=== PATIENT | male | born 1940 | race Caucasian/White ===

== ENCOUNTER 2022-03-03 19:05 | Emergency (ER) | payer OTHER ==
[~2022-03-03] VITALS: Ht 170.2 cm; Wt 102.1 kg
--- NOTE | 2022-03-03 19:55 | NUR ---
AMBER [id number] FROM HOME FOR GLF/ SLIPPED OFF BED. PT NO LONGER TO CARE FOR SELF. PT AWAKE AND ALERT BREATHING EVEN AND UNLABORED. SAFETY MEASURES IN PLACE V/S WNL.
--- NOTE | 2022-03-03 19:56 | NUR ---
PT TAKEN TO CT VIA [facility]
--- NOTE | 2022-03-03 20:11 | NUR ---
LAB AT BEDSIDE
[2022-03-03 20:50] LABS: BASOPHILS # (AUTO) 0.1 K/uL (0.0-0.2); BASOPHILS % (AUTO) 0.3 % (0.0-2.0); EOSINOPHILS % (AUTO) 0.1 % (0.0-6.0); HEMATOCRIT 45 % (39-51); HEMOGLOBIN 14.2 g/dL (13.5-17.5); LYMPHOCYTES # (AUTO) 0.9 K/uL (0.8-4.8); LYMPHOCYTES % (AUTO) 4.2 % (20.0-44.0); MEAN CORPUSCULAR HGB CONC 32 g/dl (31.0-36.0); MEAN CORPUSCULAR VOLUME 82 fL (80-96); MONOCYTES # (AUTO) 1.1 K/uL (0.1-1.30); MONOCYTES % (AUTO) 5.6 % (2.0-12.0); NEUTROPHILS # (AUTO) 18.1 K/uL (1.8-8.9); NEUTROPHILS % (AUTO) 89.8 % (43.0-81.0); PLATELET COUNT (AUTO) 251 K/uL (150-450); RED BLOOD CELL COUNT(AUTO) 5.46 MIL/uL (4.5-6.0); WHITE BLOOD COUNT (AUTO) 20.2 K/uL (4.3-11.0)
[2022-03-03 21:23] LABS: ALANINE AMINOTRANSFERASE 20 U/L (12-78); ALBUMIN 3.3 g/dL (3.4-5.0); ALKALINE PHOSPHATASE 120 U/L (46-116); ASPARTATE AMINOTRANSFERASE 14 U/L (15-37); BILIRUBIN,DIRECT 0.1 mg/dL (0.0-0.2); BILIRUBIN,TOTAL 0.5 mg/dL (0.2-1.0); CALCIUM, SERUM 9.2 mg/dL (8.5-10.1); CARBON DIOXIDE 27 mmol/L (21-32); CHLORIDE 101 mmol/L (98-107); CREATININE 1.6 mg/dL (0.6-1.3); GLUCOSE 318 mg/dL (74-106); POTASSIUM 3.1 mmol/L (3.5-5.1); SODIUM SERUM 139 mmol/L (136-145); TOTAL PROTEIN, SERUM 8.1 g/dL (6.4-8.2); UREA NITROGEN, BLOOD 19 mg/dL (7-18)
--- NOTE | 2022-03-03 22:06 | NUR ---
URINE SPECIMEN SENT TO LAB
[2022-03-03] MEDS ORDERED: CEFTRIAXONE 1GM BAG (ER ONLY) 50 ML IV ONE ×2 (22:16→22:30)
--- NOTE | 2022-03-03 22:47 | NUR ---
IV CANNULA G20 INSERTED ON LEFT FA. BLOOD DRAWN AND SENT TO LAB
[2022-03-03 22:57] LABS: BILIRUBIN,URINE NEGATIVE (NEGATIVE); COLOR,URINE YELLOW (YELLOW); LEUKOCYTE ESTERASE ,URINE MODERATE (NEGATIVE); NITRITE, URINE POSITIVE (NEGATIVE); PROTEIN,URINE 100 mg/dl (NEGATIVE); UGLUCOSE >=1000 mg/dL (NEGATIVE); UROBILINOGEN,URINE 0.2 EU/dL (0.2)
--- NOTE | 2022-03-03 23:30 | NUR ---
SPOKE WITH [facility] FOR CLINICALS. PT WILL BE TRANSFERRED AND WILL CALL BACK FOR PE[facility].
--- NOTE | 2022-03-04 05:21 | NUR ---
ADMITTING TO FOLLOW UP WITH [facility] TRANSFER INFO
--- NOTE | 2022-03-04 06:30 | NUR ---
INFORMED BY ADMITTING THE PT HAVE AUTH TO STAY
[2022-03-04 07:16] LABS: BACTERIA,URINE Many /HPF (None Seen); SQUAMOUS EPITHELIAL CELL,UR Few /HPF (None Seen); WBC,URINE 51-80 /HPF (0-3)
--- NOTE | 2022-03-04 07:40 | NUR ---
REPORT GIVEN TO ANNA DRUMMOND
--- NOTE | 2022-03-04 08:15 | NUR ---
at bedside, wants to take patient home, dr nice made aware.
[2022-03-04] MEDS ORDERED: CEPH500C2 PO (08:18)
--- NOTE | 2022-03-04 08:30 | NUR ---
Patient discharged to home in stable condition. Written and verbal after care instructions given. Patient and verbalizes understanding of instruction.IV removed. Catheter intact and site benign. Pressure and 4x4 applied to site. No bleeding noted.
[2022-03-04 08:32] VITALS: BP 150/84
== END 2022-03-04 08:32 | disposition home or self-care (01) ==
LOC: ER 19:11
DX: R26.2 Difficulty in walking, not elsewhere classified (principal); G31.9 Degenerative disease of nervous system, unspecified; R00.0 Tachycardia, unspecified; I10 Essential (primary) hypertension; Z20.822 Contact with and (suspected) exposure to COVID-19; Z91.81 History of falling
CPT/HCPCS: 99285; 70450; 71045; 87426; 93005; 84145; 85025; 80048; 87086; 83605 ×2; 80076; 81001; 36415 ×2; 84484; 87040 ×2; 87081; J0696; C9803

== ENCOUNTER 2024-08-04 12:46 | Inpatient (IN) | payer BC, OTHER ==
[~2024-08-04] VITALS: Ht 182.9 cm; Wt 76.7 kg
[~2024-08-04 12:46] MED LIST: CEPH500C2 PO
[2024-08-04] MEDS ORDERED: IOHEXOL-350 100 ML VIAL IV ONE (12:59)
[2024-08-04 13:01] LABS: BASOPHILS # (AUTO) 0.1 K/uL (0.0-0.2); BASOPHILS % (AUTO) 0.5 % (0.0-2.0); EOSINOPHILS # (AUTO) 0.1 K/uL (0.0-0.7); EOSINOPHILS % (AUTO) 0.8 % (0.0-6.0); HEMATOCRIT 44 % (39-51); HEMOGLOBIN 14.1 g/dL (13.5-17.5); LYMPHOCYTES # (AUTO) 1.6 K/uL (0.8-4.8); LYMPHOCYTES % (AUTO) 10.6 % (20.0-44.0); MEAN CORPUSCULAR HEMOGLOBIN 28 PG (26.0-33.0); MEAN CORPUSCULAR HGB CONC 32 g/dl (31.0-36.0); MEAN CORPUSCULAR VOLUME 85 fL (80-96); MONOCYTES % (AUTO) 6.3 % (2.0-12.0); NEUTROPHILS # (AUTO) 12.3 K/uL (1.8-8.9); NEUTROPHILS % (AUTO) 81.8 % (43.0-81.0); PLATELET COUNT (AUTO) 310 K/uL (150-450); RED BLOOD CELL COUNT(AUTO) 5.13 MIL/uL (4.5-6.0)
[2024-08-04 13:16] LABS: CALCIUM, SERUM 8.6 mg/dL (8.5-10.1); CARBON DIOXIDE 29 mmol/L (21-32); CHLORIDE 104 mmol/L (98-107); CREATININE 1.7 mg/dL (0.6-1.3); GLUCOSE 208 mg/dL (74-106); POTASSIUM 3.6 mmol/L (3.5-5.1); SODIUM SERUM 140 mmol/L (136-145); UREA NITROGEN, BLOOD 36 mg/dL (7-18)
[2024-08-04 13:26] LABS: ALANINE AMINOTRANSFERASE 28 U/L (12-78); ALBUMIN 3.1 g/dL (3.4-5.0); ALKALINE PHOSPHATASE 101 U/L (46-116); ASPARTATE AMINOTRANSFERASE 19 U/L (15-37); BILIRUBIN,DIRECT 0.1 mg/dL (0.0-0.2); BILIRUBIN,TOTAL 0.4 mg/dL (0.2-1.0); TOTAL PROTEIN, SERUM 7.4 g/dL (6.4-8.2)
[2024-08-04] MEDS ORDERED: ASPIRIN 325 MG TABLET ONE ×2 (13:48→14:06)
[2024-08-04] MEDS: ASPIRIN 325 MG TABLET PO ONE (14:10)
[2024-08-04 14:23] LABS: INR 1.05 (0.91-1.10); PARTIAL THROMBOPLASTIN TIME 26.7 SEC (24.3-34.3); PROTHROMBIN TIME 11.1 SECS (9.2-11.1)
[2024-08-04 16:01] VITALS: O2SAT 95
[2024-08-04] MEDS ORDERED: VALS1TAB4 PO (16:36)
[2024-08-04] MEDS ORDERED: GLIP10TA11 PO (16:36)
[2024-08-04] MEDS ORDERED: CARV3.122 PO (16:36)
[2024-08-04] MEDS: IV 1/2NS 1000 ML 1,000 ML IV PRN (20:43)
[2024-08-04 20:50] VITALS: BP 148/69; TEMP 97.9; O2SAT 98
[2024-08-04] MEDS: ATORVASTATIN 40 MG TABLET PO SCH (21:02)
[2024-08-05] MEDS: METOPROLOL SUCCINATE 25 MG TAB.SR.24H PO SCH (01:04)
[2024-08-05 01:14] VITALS: BP 148/85; TEMP 97.7; O2SAT 92
[2024-08-05 07:53] LABS: THYROID STIMULATING HORMONE 1.52 uIU/mL (0.358-3.74)
[2024-08-05 07:54] LABS: BASOPHILS # (AUTO) 0.1 K/uL (0.0-0.2); BASOPHILS % (AUTO) 0.5 % (0.0-2.0); EOSINOPHILS # (AUTO) 0.2 K/uL (0.0-0.7); EOSINOPHILS % (AUTO) 1.3 % (0.0-6.0); HEMATOCRIT 40 % (39-51); HEMOGLOBIN 13.3 g/dL (13.5-17.5); LYMPHOCYTES % (AUTO) 15.1 % (20.0-44.0); MEAN CORPUSCULAR HEMOGLOBIN 28 PG (26.0-33.0); MEAN CORPUSCULAR HGB CONC 33 g/dl (31.0-36.0); MEAN CORPUSCULAR VOLUME 84 fL (80-96); MONOCYTES % (AUTO) 7.2 % (2.0-12.0); NEUTROPHILS # (AUTO) 10.1 K/uL (1.8-8.9); NEUTROPHILS % (AUTO) 75.9 % (43.0-81.0); PLATELET COUNT (AUTO) 260 K/uL (150-450); RED BLOOD CELL COUNT(AUTO) 4.78 MIL/uL (4.5-6.0); RED CELL DISTRIBUTION WIDTH 13.9 % (11.5-15.0); WHITE BLOOD COUNT (AUTO) 13.3 K/uL (4.3-11.0)
[2024-08-05 08:00] VITALS: BP 172/83; TEMP 98.1; O2SAT 100
[2024-08-05] MEDS ORDERED: ATOR40TA PO (09:31)
[2024-08-05] MEDS ORDERED: ASPI-1420 PO (09:31)
[2024-08-05 09:35] LABS: CALCIUM, SERUM 8.3 mg/dL (8.5-10.1); CREATININE 1.6 mg/dL (0.6-1.3); POTASSIUM 3.3 mmol/L (3.5-5.1)
[2024-08-05] MEDS: HYDROCHLOROTHIAZIDE 25 MG TABLET PO SCH (09:39)
[2024-08-05] MEDS: CARVEDILOL 3.125 MG TABLET PO SCH (09:39)
[2024-08-05] MEDS: CLOPIDOGREL BISULFATE 75 MG TABLET PO SCH (09:39)
[2024-08-05] MEDS: ASPIRIN 81 MG TAB.CHEW PO SCH (09:40)
[2024-08-05] MEDS: VALSARTAN 80 MG TABLET PO SCH (09:40)
[2024-08-05] MEDS: glipiZIDE 10 MG TABLET PO SCH (10:10)
[2024-08-05 16:00] VITALS: BP 159/76; TEMP 98.1; O2SAT 97
[2024-08-05 20:00] VITALS: BP 148/52; TEMP 98.1; O2SAT 93
[2024-08-06] MEDS: ACETAMINOPHEN 325 MG TABLET PO PRN (02:07)
[2024-08-06 08:00] VITALS: BP 175/76; TEMP 98.6; O2SAT 95
[2024-08-06] MEDS ORDERED: CARV12.5 PO (09:06)
[2024-08-06 15:38] VITALS: BP 157/84; TEMP 97.9; O2SAT 94
[2024-08-06] MEDS: CARVEDILOL 12.5 MG TABLET PO SCH (17:30)
[2024-08-06 20:00] VITALS: BP 149/55; TEMP 97.9; O2SAT 97
== END 2024-08-06 20:00 | DRG 69 ==
LOC: ER 12:50 → TELE 18:04 → MED 08-05 09:05
PROVIDERS: ADMIT Internal Medicine; ATTEND Internal Medicine
DX: G45.9 Transient cerebral ischemic attack, unspecified (principal); E44.1 Mild protein-calorie malnutrition; N17.9 Acute kidney failure, unspecified; I10 Essential (primary) hypertension; E78.5 Hyperlipidemia, unspecified; N18.32 Chronic kidney disease, stage 3b; I12.9 Hypertensive chronic kidney disease with stage 1 through stage 4 chronic kidney disease, or unspecified chronic kidney disease; Z91.81 History of falling; E11.22 Type 2 diabetes mellitus with diabetic chronic kidney disease; F03.A0 Unspecified dementia, mild, without behavioral disturbance, psychotic disturbance, mood disturbance, and anxiety; E11.65 Type 2 diabetes mellitus with hyperglycemia; Z79.84 Long term (current) use of oral hypoglycemic drugs; Z79.899 Other long term (current) drug therapy; R29.704 NIHSS score 4
CPT/HCPCS: 36415; 70450-TC; 70496-TC; 70498-TC; 71045-TC; 80048-TC; 80061-TC; 80076-TC; 82962-TC; 83880; 84443-TC; 84484-TC; 85025-TC; 85730-TC; 92526; 92611-TC; 93307-TC; 97110-TC; 97116-TC; 97530-TC; 97535-TC; A4223; G0378; J7042; Q9967